=== PATIENT | female | born 1990 | race African-American/Black ===

== ENCOUNTER 2020-10-09 07:59 | Emergency (ER) | payer BC ==
--- OUTSIDE RECORDS SUMMARY | 2020-10-09 08:08 | XMS REPORT | Continuity of Care Document ---
:1990 Author Organization [facility] t Address [address] [place] [address] Care Team Providers Name Role Phone Lab, Fam Pob I Attending Clinician Unavailable Problems This patient has no known problems. Allergies, Adverse Reactions, Alerts This patient has no known allergies or adverse reactions. Medications This patient has no known medications. Procedures This patient has no known procedures. Encounters Start End Encounter Admission Attending Care Care Encounter Source Date/Time Date/Time Type Type Clinicians Facility Department ID 2020-05-08 2020-05-08 Laboratory Lab, [facility] [id number] 14:41:49 15:15:15 Only Fam Pob I [employer] [id number] [place] [id number] [place] [phone] nal [address] One Results This patient has no known results.
[2020-10-09 09:12] LABS: Absolute Lymphocytes (CBC) 1.7 K/uL (0.7-4.9); Basophils % 0.5 % (0-1.3); Hematocrit 38.9 % (36.0-45.0); Lymphocytes % 30.2 % (15.3-44.8); RBC Red Blood Cell Count 4.59 M/uL (3.86-4.86)
[2020-10-09] MEDS ORDERED: ONDANSETRON 4 MG/2 ML VIAL ONE (09:12)
[2020-10-09] MEDS ORDERED: NA CHLORIDE 0.9% 0 ML ONE (09:12)
[2020-10-09] MEDS ORDERED: NA CHLORIDE 0.9% 1,000 ML ONE (09:21)
[2020-10-09 09:22] LABS: Albumin 3.5 g/dL (3.4-5.0); Bilirubin Direct 0.1 mg/dL (0-0.2); Bilirubin Total 0.4 mg/dL (0.2-1.0); Potassium 3.7 mmol/L (3.5-5.1); Protein, Total 7.3 g/dL (6.4-8.2)
--- NOTE | 2020-10-09 09:44 | ER ---
Nurse's Notes [facility] Name: Tawanna Foss Age: 30 yrs Sex: Female : 1990 Arrival Date: 10/09/2020 Time: 08:25 Bed External Waiting Private MD: Diagnosis: Vomiting;Abdominal tenderness Presentation: 10/09 08:25 Chief complaint: Patient states: nausea/ vomiting that began this morning. Coronavirus ss screen: Client denies travel out of the [place] in the last 14 days. Ebola Screen: Patient denies exposure to infectious person. Patient denies travel to an Ebola-affected area in the 21 days before illness onset. Initial Sepsis Screen: Does the patient meet any 2 criteria? No. Patient's initial sepsis screen is negative. Does the patient have a suspected source of infection? No. Patient's initial sepsis screen is negative. Risk Assessment: Do you want to hurt yourself or someone else? Patient reports no desire to harm self or others. Onset of symptoms was October 09, 2020. 08:25 Method Of Arrival: EMS ss 08:25 Acuity: RAKAN 3 ss Triage Assessment: 08:00 General: Appears in no apparent distress. comfortable, well groomed, Behavior is calm, dm14 cooperative, appropriate for age. GI: Reports No further vomiting. Denies any abdominal pain. 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 - Family history:: not pertinent. - Social history:: Smoking status: Patient denies any tobacco usage or history of. Screenin:49 Abuse screen: Denies threats or abuse. Denies injuries from another. Nutritional dm14 screening: No deficits noted. Tuberculosis screening: No symptoms or risk factors identified. Fall Risk None identified. Assessment: 10:47 General: Appears in no apparent distress. comfortable, well groomed, Behavior is calm, dm14 cooperative, appropriate for age. Pain: Denies pain. Neuro: No deficits noted. GI: No further vomiting. Denies pain at this time. Vital Signs: 09:00 BP 104 / 82; ss 09:19 Pulse 71; Resp 14; Pulse Ox 100% on R/A; sr5 09:19 meds administered, blanket provided. sr5 ED Course: 08:25 Patient arrived in ED. ss 08:32 Gilbert Gomez MD is Attending Physician. jalyn 08:43 Eleni Campbell, RN is Primary Nurse. dm14 09:00 Arm band placed on right wrist. ss 10:30 Triage completed. ss 10:49 Patient has correct armband on for positive identification. Bed in low position. Call dm14 light in reach. Side rails up X 1. 10:49 No provider procedures requiring assistance completed. IV discontinued, intact, dm14 bleeding controlled, No redness/swelling at site. Pressure dressing applied. Administered Medications: 09:07 Drug: NS 0.9% 1000 ml Route: IV; Rate: 1 bolus; Site: right wrist; sr5 10:31 Follow up: IV Status: Completed infusion; IV Intake: 1000ml ss 11:04 Follow up: IV Status: Completed infusion dm14 09:16 Drug: Zofran (Ondansetron) 4 mg Route: IVP; Site: right wrist; sr5 10:31 Follow up: Response: No adverse reaction; Marked relief of symptoms; Nausea is decreasedss 11:04 Follow up: Response: No adverse reaction dm14 Intake: 10:31 IV: 1000ml; Total: 1000ml. ss Outcome: 09:43 Discharge ordered by . jalyn 10:31 Patient left the ED. ss 10:49 Discharged to home ambulatory. dm14 10:49 Condition: stable 10:49 Discharge instructions given to patient, Instructed on discharge instructions, follow up and referral plans. medication usage, Demonstrated understanding of instructions, follow-up care, medications, Prescriptions given X 2. Signatures: Gilbert Gomez MD MD cha Smirch, Shelby RN RN Meek Garcia RN RN sr5 Eleni Campbell RN RN dm14
--- NOTE | 2020-10-09 09:44 | EDPHYS ---
Physician Documentation [facility] Name: Tawanna Foss Age: 30 yrs Sex: Female : 1990 Arrival Date: 10/09/2020 Time: 08:25 Bed External Waiting Private MD: ED Physician Gilbert Gomez HPI: 10/09 09:38 This 30 yrs old Black Female presents to ER via Unassigned with complaints of Vomiting. jalyn 09:38 The patient presents to the emergency department with nausea, vomiting, that is jalyn intermittent. Onset: The symptoms/episode began/occurred just prior to arrival. Possible causes: unknown. The symptoms are aggravated by nothing. The symptoms are alleviated by nothing. Associated signs and symptoms: The patient has no apparent associated signs or symptoms. Severity of symptoms: At their worst the symptoms were mild moderate in the emergency department the symptoms have improved moderately. The patient has experienced similar episodes in the past, a few times. 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 - Family history:: not pertinent. - Social history:: Smoking status: Patient denies any tobacco usage or history of. ROS: 09:38 Constitutional: Negative for fever, chills, and weight loss, Eyes: Negative for injury, jalyn pain, redness, and discharge, ENT: Negative for injury, pain, and discharge, Neck: Negative for injury, pain, and swelling, Cardiovascular: Negative for chest pain, palpitations, and edema, Respiratory: Negative for shortness of breath, cough, wheezing, and pleuritic chest pain, Back: Negative for injury and pain, : Negative for injury, bleeding, discharge, and swelling, MS/Extremity: Negative for injury and deformity, Skin: Negative for injury, rash, and discoloration, Neuro: Negative for headache, weakness, numbness, tingling, and seizure, Psych: Negative for depression, anxiety, suicide ideation, homicidal ideation, and hallucinations, Allergy/Immunology: Negative for hives, rash, and allergies, Endocrine: Negative for neck swelling, polydipsia, polyuria, polyphagia, and marked weight changes, Hematologic/Lymphatic: Negative for swollen nodes, abnormal bleeding, and unusual bruising. 09:38 Abdomen/GI: Positive for nausea and vomiting. Exam: 09:38 Constitutional: This is a well developed, well nourished patient who is awake, alert, jalyn and in no acute distress. Head/Face: Normocephalic, atraumatic. Eyes: Pupils equal round and reactive to light, extra-ocular motions intact. Lids and lashes normal. Conjunctiva and sclera are non-icteric and not injected. Cornea within normal limits. Periorbital areas with no swelling, redness, or edema. ENT: Nares patent. No nasal discharge, no septal abnormalities noted. Tympanic membranes are normal and external auditory canals are clear. Oropharynx with no redness, swelling, or masses, exudates, or evidence of obstruction, uvula midline. Mucous membranes moist. Neck: Trachea midline, no thyromegaly or masses palpated, and no cervical lymphadenopathy. Supple, full range of motion without nuchal rigidity, or vertebral point tenderness. No Meningismus. Chest/axilla: Normal chest wall appearance and motion. Nontender with no deformity. No lesions are appreciated. Cardiovascular: Regular rate and rhythm with a normal S1 and S2. No gallops, murmurs, or rubs. Normal PMI, no JVD. No pulse deficits. Respiratory: Lungs have equal breath sounds bilaterally, clear to auscultation and percussion. No rales, rhonchi or wheezes noted. No increased work of breathing, no retractions or nasal flaring. Abdomen/GI: Soft, non-tender, with normal bowel sounds. No distension or tympany. No guarding or rebound. No evidence of tenderness throughout. Back: No spinal tenderness. No costovertebral tenderness. Full range of motion. Skin: Warm, dry with normal turgor. Normal color with no rashes, no lesions, and no evidence of cellulitis. MS/ Extremity: Pulses equal, no cyanosis. Neurovascular intact. Full, normal range of motion. Neuro: Awake and alert, GCS 15, oriented to person, place, time, and situation. Cranial nerves II-XII grossly intact. Motor strength 5/5 in all extremities. Sensory grossly intact. Cerebellar exam normal. Normal gait. Psych: Awake, alert, with orientation to person, place and time. Behavior, mood, and affect are within normal limits. 09:38 Musculoskeletal/extremity: ROM: no acute changes, intact in all extremities, Circulation is intact in all extremities. Pulses: are normal with no appreciated deficits, Perfusion: the patient is normally perfused throughout, Sensation intact. Compartment Syndrome exam of affected extremity: is normal. no pain, DVT Exam: No signs of deep vein thrombosis. no pain, no swelling, no tenderness, negative Homans' sign noted on exam, no appreciated bluish discoloration, no erythema, no increased warmth. Vital Signs: 09:00 BP 104 / 82; ss 09:19 Pulse 71; Resp 14; Pulse Ox 100% on R/A; sr5 09:19 meds administered, blanket provided. sr5 MDM: 08:35 Patient medically screened. jalyn 09:41 Differential diagnosis: Nonspecific abd pain, viral gastroenteritis, gastroenteritis. [facility] Data reviewed: vital signs, nurses notes, lab test result(s). Data interpreted: case monitor: not applicable for this patient encounter. rate is 71 beats/min, rhythm is regular, Pulse oximetry: on room air is 100 %. Counseling: I had a detailed discussion with the patient and/or guardian regarding: the historical points, exam findings, and any diagnostic results supporting the discharge/admit diagnosis, lab results. 10/09 08:34 Order name: Basic Metabolic Panel; Complete Time: 09:32 [facility] 10/09 08:34 Order name: CBC with Diff; Complete Time: 09:32 [facility] 10/09 08:34 Order name: Hepatic Function; Complete Time: 09:32 [facility] 10/09 08:34 Order name: Lipase; Complete Time: 09:32 [facility] 10/09 09:29 Order name: Urine Dipstick--Ancillary (enter results) 10/09 09:29 Order name: Urine --Ancillary (enter results) 10/09 08:34 Order name: IV Saline Lock; Complete Time: 08:53 [facility] 10/09 08:34 Order name: Labs collected and sent; Complete Time: 08:53 [facility] 10/09 08:34 Order name: Urine Dipstick-Ancillary (obtain specimen); Complete Time: 09:16 [facility] 10/09 08:34 Order name: Urine Test (obtain specimen); Complete Time: 09:16 [facility] Administered Medications: 09:07 Drug: NS 0.9% 1000 ml Route: IV; Rate: 1 bolus; Site: right wrist; sr5 10:31 Follow up: IV Status: Completed infusion; IV Intake: 1000ml ss 11:04 Follow up: IV Status: Completed infusion dm14 09:16 Drug: Zofran (Ondansetron) 4 mg Route: IVP; Site: right wrist; sr5 10:31 Follow up: Response: No adverse reaction; Marked relief of symptoms; Nausea is decreasedss 11:04 Follow up: Response: No adverse reaction dm14 Disposition: 10/09/20 09:43 Discharged to Home. Impression: Vomiting, Abdominal tenderness. - Condition is Stable. - Discharge Instructions: Abdominal Pain, Adult, Nausea and Vomiting, Adult, [id number]-rm-[id number], Abdominal Pain, Adult, Biqg-jh-Evmo. - Prescriptions for Pepcid 20 mg Oral Tablet - take 1 tablet by ORAL route every 12 hours for 10 days; 20 tablet. Zofran 4 mg Oral Tablet - take 1 tablet by ORAL route every 12 hours As needed; 20 tablet. - Medication Reconciliation Form, Thank You Letter, Antibiotic Education, Prescription Opioid Use form. - Follow up: Private Physician; When: 2 - 3 days; Reason: Recheck today's complaints, Continuance of care, Re-evaluation by your physician. - Problem is new. - Symptoms have improved. Signatures: Dispatcher [employer] EDMS Gilbert Gomez MD MD cha Smirch, Shelby RN RN Resecker, Meek RN RN sr5 Eleni Campbell, RN RN dm14 Corrections: (The following items were deleted from the chart) 10:31 09:43 10/09/2020 09:43 Discharged to Home. Impression: Vomiting; Abdominal tenderness. ss Condition is Stable. Forms are Medication Reconciliation Form, Thank You Letter, Antibiotic Education, Prescription Opioid Use. Follow up: Private Physician; When: 2 - 3 days; Reason: Recheck today's complaints, Continuance of care, Re-evaluation by your physician. Problem is new. Symptoms have improved. jalyn
[2020-10-09 09:57] LABS: Urine Blood NEGATIVE (NEG); Urine Glucose NEGATIVE (NEG); Urine Protein 1+ (NEG); Urine Specific Gravity >1.030 (1.005-1.030); Urine pH 5.5 (5.0-7.0)
[2020-10-09 10:35] VITALS: BP 104/82
[2020-10-09 10:36] VITALS: O2SAT 100
== END 2020-10-09 10:31 | disposition home or self-care (01) ==
LOC: ER 07:59
DX: R10.819 Abdominal tenderness, unspecified site (principal)
CPT/HCPCS: 96361; 85025; 80048; 36415; 81025; 80076; 81003; 83690; 96374; 99283; J7030; J2405

== ENCOUNTER 2021-10-29 00:15 | Emergency (ER) | payer BC ==
--- OUTSIDE RECORDS SUMMARY | 2021-10-29 00:19 | XMS REPORT | Continuity of Care Document ---
:1990 Author Organization [facility] t Address [address] [place] [address] Care Team Providers Name Role Phone Pcp, Does Not Have A Primary Care Physician Mylene CLEMENT T Attending Clinician Unavailable Only, Db Test Attending Clinician Unavailable César GLOBE CHANGER Attending Clinician KEV, A Attending Clinician Unavailable ANENE Attending Clinician Unavailable Lab, Fam Pob I Attending Clinician Unavailable Anene GLOBE CHANGER Attending Clinician Doctor Unassigned, Name Attending Clinician Unavailable Payers Payer Name Policy Type Policy Number Effective Date Expiration Date S ource Problems This patient has no known problems. Allergies, Adverse Reactions, Alerts Allergy Allergy Status Severity Reaction(s) Onset Inactive Treating Comm ents Source Name Type Date Date Clinician NO KNOWN Drug Active [facility] ALLERGIE Class ity of S [facility] Social History Social Habit Start Date Stop Date Quantity Comments Source Exposure to Yes [facility] SARS-CoV-2 (event) Medica l Branch Sex Assigned At [birth year] [facility] 00:00:00 00:00:00 [facility] Smoking Status Start Date Stop Date Source Unknown if ever smoked [facility] Medications This patient has no known medications. Procedures This patient has no known procedures. Encounters Start End Encounter Admission Attending Care Care Encounter Source Date/Time Date/Time Type Type Clinicians Facility Department ID 2021-04-24 2021-04-24 Letter DURAN Chakraborty [id number] Univers 00:00:00 00:00:00 (Out) Gracie QUIROZ [id number] it y of HOSPITAL [id number] Casa as [phone] [address] 2021-04-22 2021-04-22 Laboratory Only, Ang Db Test [facility] [id number] Univers 14:07:07 14:22:07 Only Tawanna [facility] [id number] ity of [place] [id number] Casa as Dimitry?Blea [phone] Sc [address] [facility] 2021-04-22 2021-04-[address] [facility] [id number] Univers 14:15:00 14:15:00 [id number] ity [facility] 2021-04-22 2021-04-[address] [facility] [id number] Univers 14:15:00 14:15:00 ity [facility] 2020-06-27 2020-06-[address] [facility] [id number] Univers 09:20:00 09:20:00 [id number] ity [facility] 2020-06-27 2020-06-27 Outpatient R KEV, [facility] [id number] Univers 09:20:00 09:20:00 VERÓNICA ity [facility] 2020-05-08 2020-05-08 Outpatient R MATTHEW, [facility] [id number] Univers 15:40:00 15:40:00 CAM ity [facility] 2020-05-08 2020-05-08 Laboratory Lab, [facility] [id number] 14:41:49 15:15:15 Only Fam Pob I Health [id number] [place] [id number] Professio [phone] nal [facility] Office Building [address] 2020-05-08 2020-05-08 Laboratory Lab, [facility] Fam Pob I [facility] [id number] Univers 14:41:49 15:15:15 Only Matthew [facility] [id number] ity of [place] [id number] Casa as Professio [phone] Sc dical [facility] [address] 2020-05-08 2020-05-[address] [facility] [id number] Univers 15:00:00 15:00:00 [id number] ity of [facility] 2020-05-08 2020-05-08 Letter Doctor DURAN [id number] Univers 00:00:00 00:00:00 (Out) Unassigned, GABRIELLA [id number] ity of [place] [facility] [id number] Casa as [phone] [place] [address] Branch Results This patient has no known results.
[2021-10-29 02:44] LABS: Urine Blood Trace-intact (Negative); Urine Glucose Negative (Negative); Urine Protein Negative (Negative); Urine Specific Gravity >=1.030 (1.005-1.030); Urine pH 5.5 (5.0-7.0)
[2021-10-29] MEDS ORDERED: KETOROLAC 30 MG/ML INJ ONE (02:48)
[2021-10-29] MEDS ORDERED: CYCLOBENZAPRINE 10 MG TAB ONE (02:48)
--- NOTE | 2021-10-29 03:19 | ER ---
Nurse's Notes [facility] Name: Tawanna Foss Age: 31 yrs Sex: Female : 1990 Arrival Date: 10/29/2021 Time: 00:21 Bed 16 Private MD: Diagnosis: Musculoskeletal Pain Presentation: 10/29 00:50 Chief complaint: Patient states: "I am having pain and numbness in my neck going down as6 my left arm. It's been going on for about a week and I am also having pain in my lower left side of my abdomen". Coronavirus screen: At this time, the client does not indicate any symptoms associated with coronavirus-19. Ebola Screen: No symptoms or risks identified at this time. Initial Sepsis Screen: Does the patient meet any 2 criteria? No. Patient's initial sepsis screen is negative. Does the patient have a suspected source of infection? No. Patient's initial sepsis screen is negative. Risk Assessment: Do you want to hurt yourself or someone else? Patient reports no desire to harm self or others. Onset of symptoms was October 22, 2021. 00:50 Method Of Arrival: Ambulatory as6 00:50 Acuity: RAKAN 3 as6 Triage Assessment: 00:55 General: Appears uncomfortable, Behavior is calm, cooperative. Pain: Complains of pain as6 in neck Pain radiates to left arm. 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 - Social history:: Smoking status: Patient denies any tobacco usage or history of. Screenin:05 Abuse screen: Denies threats or abuse. Denies injuries from another. Nutritional lg3 screening: No deficits noted. Tuberculosis screening: No symptoms or risk factors identified. Fall Risk None identified. Assessment: 02:26 General: Appears in no apparent distress. uncomfortable, Behavior is calm, cooperative. lg3 Neuro: No deficits noted. Level of Consciousness is awake, alert, obeys commands, Oriented to person, place, time, situation, Moves all extremities. Gait is steady. Cardiovascular: No deficits noted. Denies chest pain, shortness of breath, Capillary refill < 3 seconds JVD is absent Patient's skin is warm and dry. Respiratory: No deficits noted. Airway is patent Trachea midline Respiratory effort is even, unlabored, Respiratory pattern is regular, symmetrical. GI: No deficits noted. No signs and/or symptoms were reported involving the gastrointestinal system. Abdomen is round non-distended. : No deficits noted. No signs and/or symptoms were reported regarding the genitourinary system. EENT: No deficits noted. No signs and/or symptoms were reported regarding the EENT system. Derm: No deficits noted. No signs and/or symptoms reported regarding the dermatologic system. Skin is intact, is healthy with good turgor, Skin is dry. Musculoskeletal: Circulation, motion, and sensation intact. Capillary refill < 3 seconds, Range of motion: intact in all extremities, Reports numbness in left arm and neck. 03:36 Reassessment: Patient appears in no apparent distress at this time. No changes from lg3 previously documented assessment. Patient and/or family updated on plan of care and expected duration. Pain level reassessed. Patient is alert/active/playful, equal unlabored respirations, skin warm/dry/pink. Patient states feeling better. Patient states symptoms have improved. Vital Signs: 00:50 BP 125 / 101; Pulse 85; Resp 18 S; Temp 98.1(TE); Pulse Ox 99% on R/A; Weight 86.18 kg as6 (R); Height 5 ft. 6 in. (167.64 cm) (R); Pain 8/10; 00:50 Body Mass Index 30.67 (86.18 kg, 167.64 cm) as6 ED Course: 00:21 Patient arrived in ED. es 00:53 Triage completed. as6 00:55 Arm band placed on. as6 02:02 Alessandro Lopez PA is PHCP. jr8 02:02 Pietro Lazo MD is Attending Physician. jr8 02:04 Latasha Barber RN is Primary Nurse. lg3 02:05 Patient has correct armband on for positive identification. Bed in low position. Call lg3 light in reach. Side rails up X 1. Pulse ox on. NIBP on. Door closed. Noise minimized. Warm blanket given. 03:36 No provider procedures requiring assistance completed. Patient did not have IV access lg3 during this emergency room visit. Administered Medications: 02:53 Drug: Ketorolac 30 mg Route: IM; Site: left gluteus; lg3 02:53 Follow up: Response: No adverse reaction lg3 02:53 Drug: Flexeril (cyclobenzaprine) 10 mg Route: PO; lg3 02:53 Follow up: Response: No adverse reaction lg3 Outcome: 03:18 Discharge ordered by . buster 03:36 Discharged to home ambulatory. lg3 03:36 Condition: stable 03:36 Discharge instructions given to patient, Instructed on discharge instructions, follow up and referral plans. medication usage, Demonstrated understanding of instructions, medications, Prescriptions given X 2. 03:37 Patient left the ED. lg3 Signatures: Janina Hamilton Josh, PA PA jr8 Latasha Barber RN RN lg3 Pietro Lazo MD MD mh7 Mo Ly RN RN as6 Corrections: (The following items were deleted from the chart) 00:55 00:53 PSHx: None; as6 as6
--- NOTE | 2021-10-29 03:19 | EDPHYS ---
Physician Documentation [facility] Name: Tawanna Foss Age: 31 yrs Sex: Female : 1990 Arrival Date: 10/29/2021 Time: 00:21 Bed 16 Private MD: ED Physician Pietro Lazo HPI: 10/29 02:34 This 31 yrs old Black Female presents to ER via Ambulatory with complaints of shoulder jr8 pain with radiation down arm. Left sided abdominal pain. 02:34 Patient stated that she started to have left shoulder pain that radiates down left arm. jr8 Stated that she had been taking motrin but tonight the pain got severe. Also complains of left lower abdominal pain. Denies vaginal or urinary complaints. Stated that she had 2 episodes of vomiting about 2 days ago but no fever or diarrhea . Severity of symptoms: At their worst the symptoms were moderate in the emergency department the symptoms are unchanged. The patient has not experienced similar symptoms in the past. The patient has not recently seen a physician. 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 - Social history:: Smoking status: Patient denies any tobacco usage or history of. ROS: 02:34 Eyes: Negative for injury, pain, redness, and discharge, ENT: Negative for injury, jr8 pain, and discharge, Neck: Negative for injury, pain, and swelling, Cardiovascular: Negative for chest pain, palpitations, and edema, Respiratory: Negative for shortness of breath, cough, wheezing, and pleuritic chest pain, Back: Negative for injury and pain, Skin: Negative for injury, rash, and discoloration, Neuro: Negative for headache, weakness, numbness, tingling, and seizure. 02:34 Abdomen/GI: Positive for abdominal pain, nausea and vomiting, Negative for diarrhea, abdominal cramps, abdominal distension, hematemesis, black/tarry stool, rectal pain, rectal bleeding, bowel incontinence, flatulence. 02:34 MS/extremity: Positive for pain, tenderness, of the left shoulder. Exam: 02:34 Constitutional: This is a well developed, well nourished patient who is awake, alert, jr8 and in no acute distress. Neck: Trachea midline, no thyromegaly or masses palpated, and no cervical lymphadenopathy. Supple, full range of motion without nuchal rigidity, or vertebral point tenderness. No Meningismus. Cardiovascular: Regular rate and rhythm with a normal S1 and S2. No gallops, murmurs, or rubs. Normal PMI, no JVD. No pulse deficits. Respiratory: Lungs have equal breath sounds bilaterally, clear to auscultation and percussion. No rales, rhonchi or wheezes noted. No increased work of breathing, no retractions or nasal flaring. Abdomen/GI: Soft, non-tender, with normal bowel sounds. No distension or tympany. No guarding or rebound. No evidence of tenderness throughout. Skin: Warm, dry with normal turgor. Normal color with no rashes, no lesions, and no evidence of cellulitis. MS/ Extremity: Pulses equal, no cyanosis. Neurovascular intact. Full, normal range of motion. Neuro: Awake and alert, GCS 15, oriented to person, place, time, and situation. Cranial nerves II-XII grossly intact. Motor strength 5/5 in all extremities. Sensory grossly intact. Cerebellar exam normal. Normal gait. 02:34 Back: pain, that is moderate, of the left trapezius, left scapular area and left subscapular area, ROM is painful, with all movement, normal spinal alignment noted, CVA tenderness, is absent, muscle spasm, is appreciated in the left trapezius and left scapular area. Vital Signs: 00:50 BP 125 / 101; Pulse 85; Resp 18 S; Temp 98.1(TE); Pulse Ox 99% on R/A; Weight 86.18 kg as6 (R); Height 5 ft. 6 in. (167.64 cm) (R); Pain 8/10; 00:50 Body Mass Index 30.67 (86.18 kg, 167.64 cm) as6 MDM: 02:02 Patient medically screened. jr8 02:34 Data reviewed: vital signs, nurses notes. jr8 03:15 Differential diagnosis: musculoskeletal pain, parasthesias. Data interpreted: Pulse mh7 oximetry: on room air is 99 %. Interpretation: normal. Counseling: I had a detailed discussion with the patient and/or guardian regarding: the historical points, exam findings, and any diagnostic results supporting the discharge/admit diagnosis, the need for outpatient follow up, to return to the emergency department if symptoms worsen or persist or if there are any questions or concerns that arise at home. Response to treatment: the patient's symptoms have resolved after treatment, the patient's blood pressure is in an acceptable range, mental status has returned to baseline, the patient no longer shows bradycardia, the patient is not short of breath, the patient is not tachycardic, the patient's pain is gone, the patient's temperature has normalized. 10/29 02:43 Order name: Urine Dipstick-Ancillary; Complete Time: 02:51 EDMS 10/29 02:24 Order name: Urine Dipstick-Ancillary (obtain specimen); Complete Time: 02:47 jr8 10/29 02:24 Order name: Urine Test (obtain specimen); Complete Time: 02:47 jr8 Administered Medications: 02:53 Drug: Ketorolac 30 mg Route: IM; Site: left gluteus; lg3 02:53 Follow up: Response: No adverse reaction lg3 02:53 Drug: Flexeril (cyclobenzaprine) 10 mg Route: PO; lg3 02:53 Follow up: Response: No adverse reaction lg3 Disposition: 06:00 Co-signature as Attending Physician, Pietro Lazo MD. [facility] Disposition Summary: 10/29/21 03:18 Discharge Ordered Location: Home [facility] Problem: [facility] Symptoms: have improved mh7 Condition: Stable [facility] Diagnosis - Musculoskeletal Pain [facility] Followup: [facility] - With: Private Physician - When: 1 - 2 days - Reason: Worsening of condition, Recheck today's complaints, Continuance of care, Re-evaluation by your physician Discharge Instructions: - Discharge Summary Sheet [facility] - Musculoskeletal Pain [facility] Forms: - Medication Reconciliation Form [facility] - Thank You Letter [facility] - Antibiotic Education [facility] - Prescription Opioid Use [facility] Prescriptions: - ketorolac 10 mg Oral tablet - take 1 tablet by ORAL route every 6 hours As needed not to exceed 40 mg in mh7 24hrs; 15 tablet; Refills: 0, Product Selection Permitted - Cyclobenzaprine 5 mg Oral Tablet - take 1 tablet by ORAL route 3 times per day As needed; 15 tablet; Refills: 0, mh7 Product Selection Permitted Signatures: Dispatcher [employer] Alessandro Lanza PA PA jr8 Latasha Barber RN RN lg3 Pietro Lazo MD MD mh7 Mo Ly RN RN as6 Corrections: (The following items were deleted from the chart) 00:55 00:53 PSHx: None; as6 as6
[2021-10-29 03:42] VITALS: BP 125/101; TEMP 98.1; O2SAT 99
== END 2021-10-29 03:37 | disposition home or self-care (01) ==
LOC: ER 00:15
DX: M79.18 Myalgia, other site (principal); R10.9 Unspecified abdominal pain; F90.9 Attention-deficit hyperactivity disorder, unspecified type
CPT/HCPCS: 81003; 96372; 99283